=== PATIENT | male | born 1960 | race Asian ===

== ENCOUNTER 2017-02-02 08:45 | Emergency (ER) | payer OTHER ==
[~2017-02-02] VITALS: Ht 165.1 cm; Wt 81.6 kg
[2017-02-02 08:54] VITALS: TEMP 97.3
[2017-02-02 09:42] LABS: POTASSIUM 3.7 mmol/L (3.6-5.2); SODIUM 137 mmol/L (136-145)
[2017-02-02 12:20] VITALS: BP 190/99
== END 2017-02-02 12:23 | disposition home or self-care (01) ==
LOC: ED 08:45
PROVIDERS: Specialist
DX: I10 Essential (primary) hypertension (principal); M79.1 Myalgia
CPT/HCPCS: 36415; 80048; 81000; 83735; 96374; 99284; J0360

== ENCOUNTER 2022-06-20 22:52 | Emergency (ER) | payer OTHER ==
[~2022-06-20] VITALS: Ht 165.1 cm; Wt 79.4 kg
[2022-06-20 23:15] LABS: PLATELET COUNT 263 K/uL (142-355)
[2022-06-20 23:38] LABS: POTASSIUM 3.3 mmol/L (3.6-5.2)
[2022-06-20 23:40] LABS: PARTIAL THROMBOPLASTIN TIME 25.2 SECONDS (24.5-33.6)
[2022-06-21 00:20] VITALS: BP 188/105; TEMP 98.1
== END 2022-06-21 00:25 | disposition home or self-care (01) ==
LOC: ED 22:52
PROVIDERS: Hospitalist
DX: R07.89 Other chest pain (principal); I16.0 Hypertensive urgency
CPT/HCPCS: 80053; 80320; 82550; 83880; 84484; 85027; 85379; 85610; 85730; 93005; 99284; J0360; J1885; J2405

== ENCOUNTER 2023-05-09 17:30 | Emergency (ER) | payer OTHER ==
[~2023-05-09] VITALS: Ht 165.1 cm; Wt 79.4 kg
[2023-05-09 17:40] VITALS: TEMP 97.1
[2023-05-09 19:15] VITALS: BP 160/92
== END 2023-05-09 19:19 | disposition home or self-care (01) ==
LOC: ED 17:30
DX: L20.9 Atopic dermatitis, unspecified (principal); I10 Essential (primary) hypertension
CPT/HCPCS: 99283